=== PATIENT | male | born 1990 | race Caucasian/White ===

== ENCOUNTER 2023-03-18 13:57 | Emergency (ER) | payer SELFPAY ==
[~2023-03-18] VITALS: Ht 172.7 cm; Wt 70.0 kg
[2023-03-18] MEDS ORDERED: OMNICEF300 M1 PO (16:03)
[2023-03-18] MEDS ORDERED: BACTRIM DS1 TAB PO (16:13)
[2023-03-18 17:09] VITALS: BP 110/60
== END 2023-03-18 17:10 | disposition home or self-care (01) | DRG 914 ==
LOC: ED 13:57
DX: S81.842A Puncture wound with foreign body, left lower leg, initial encounter (principal); W20.8XXA Other cause of strike by thrown, projected or falling object, initial encounter; Y93.H2 Activity, gardening and landscaping